=== PATIENT | male | born 1990 | race Two or more races ===

== ENCOUNTER 2023-03-08 19:34 | Emergency (ER) | payer BC, OTHER ==
[~2023-03-08] VITALS: Ht 188 cm; Wt 169.0 kg
[2023-03-08 19:57] VITALS: BP 134/92; PULSE 0; RESP 18; TEMP 98.3; O2SAT 97
[2023-03-09] MEDS ORDERED: TETANUS-DIPTH-ACEL PERTUSSIS 0.5ML SYR Tdap IM ONE (01:00)
[2023-03-09] MEDS ORDERED: CEPH500C PO (01:18)
[2023-03-09] MEDS ORDERED: IBUP-1455 PO (01:18)
== END 2023-03-09 01:27 | disposition home or self-care (01) ==
LOC: ER 19:34
DX: S61.412A Laceration without foreign body of left hand, initial encounter (principal); E66.9 Obesity, unspecified; W45.8XXA Other foreign body or object entering through skin, initial encounter; Y93.89 Activity, other specified; Y92.89 Other specified places as the place of occurrence of the external cause; Y99.8 Other external cause status
CPT/HCPCS: 12002; 90471; 90715